=== PATIENT | male | born 1960 | race Caucasian/White ===

== ENCOUNTER 2019-09-08 17:00 | Outpatient (CLI) | payer OTHER, SELFPAY ==
--- NOTE | ~2019-09-08 | MR_ITS ---
EXAMINATION: MR lumbar spine wo con DATE: 09/08/2019 17:45 INDICATION: Low back pain. TECHNIQUE: Magnetic resonance imaging (MRI) of the lumbar spine was performed without intravenous con trast. Sequences included sagittal T2-weighted FSE, sagittal T2-weighted FS FSE, sagittal T1-weighted FSE, and axial T2-weighted FSE. COMPARISON: Lumbar spine radiograph 08/24/2018 FINDINGS: There is 3 degrees dextrocurvature of lumbar spine. There is a Schmorl's node of T12 inferi or endplate. There is mild chronic anterior wedging of T11 and T12. There is mildly decreased disc he ight from T11-T12 through L3-L4. The distal spinal cord signal intensity is normal. The conus medulla ris is at L1-L2. The following disc levels are specifically discussed: L1-L2: The disc is bulging and has an annular fissure. There is mild bilateral facet joint osteoarthr itis. There is mild right neural foraminal stenosis. There is mild central canal stenosis. L2-L3: The disc is bulging and has an annular fissure. There is mild bilateral facet joint osteoarthr itis. There is mild bilateral neural foraminal stenosis. There is mild central canal stenosis. L3-L4: The disc is bulging and has an annular fissure. There is mild left facet joint osteoarthritis. There is mild right and moderate left neural foraminal stenosis. There is mild central canal stenosi s. L4-L5: The disc is bulging. There is severe left facet joint osteoarthritis. There is mild bilateral neural foraminal stenosis. There is no central canal stenosis. L5-S1: There is a right central extrusion. There is mild bilateral facet joint osteoarthritis. There is mild right neural foraminal stenosis. There is mild central canal stenosis. IMPRESSION: 1. Mild lumbar spondylosis. Reviewed, dictated and finalized at [facility]. IMPRESSION: 1. Mild lumbar spondylosis.
== END 2019-09-08 17:01 | disposition home or self-care (01) ==
PROVIDERS: PCP Internal Medicine; Visit Provider Internal Medicine
DX: M54.5 Low back pain (principal); G89.29 Other chronic pain; M47.816 Spondylosis without myelopathy or radiculopathy, lumbar region
CPT/HCPCS: 72148

== ENCOUNTER 2021-01-10 02:30 | Day surgery (SDC) | payer OTHER, SELFPAY ==
[2020-12-26 14:12] VITALS: BMI 30.5
--- NOTE | 2021-01-09 13:23 | PM.HPGS ---
History of Present Illness History of Present Illness Consent: Risks, benefits, and alternatives have been discussed and questions answered. Patient agrees to proceed with procedure. Chief complaint: neoplasm screening Narrative: Rell Mcfarlane is a 60 year old male referred for colon cancer screening. His last colonoscopy was 11 years ago Review of Systems Review of Systems: All systems reviewed & are unremarkable except as noted in HPI and below PMFSH Past Medical History Medical History Chondromalacia of both patellae Chronic bilateral low back pain without sciatica Diverticulitis Gouty arthritis Heart disease HOCM (hypertrophic obstructive cardiomyopathy) Hypothyroidism (acquired) Idiopathic gout, multiple sites Idiopathic gout, unspecified site Internal derangement of left knee Kidney disease Lumbar spondylosis Mixed hyperlipidemia Sleep apnea Testicular hypogonadism Thyroid disease Vitamin D deficiency, unspecified Surgical History Surgical History H/O cardiac radiofrequency ablation History of cholecystectomy (~1996) History of colon resection (~2008) History of common bile duct surgery Hx of cataract surgery both eyes 2016 Family History Family History Sibling Family history of cardiomyopathy Family history of malignant neoplasm of breast in first degree relative Father Family history of diabetes mellitus in first degree relative Hypertension Sibling , Also had HOCM at 63 HOCM (hypertrophic obstructive cardiomyopathy) Mother Alcoholism Social History Social History Smoking status: Never smoker Second hand tobacco smoke exposure: No Alcohol intake: current Drinks per week: 24 Alcohol use details: beer Substance use: never Substance use type: does not use Living arrangements: with family Gender identity (if verbalized by the patient): Male Spiritual care concerns: No Agree to blood products: Yes Meds Home Medications and Allergies Home Medications Medication Instructions Recorded Confirmed Type ergocalciferol (vitamin D2) 1,250 See Rx Instructions .ROUTE 02/14/20 01/10/21 Rx mcg (50,000 unit) capsule .COMPLEX #13 cap icosapent ethyl 1 gram capsule 2 g PO BID 10/10/20 01/10/21 History cyanocobalamin (vitamin B-12) 1,000 mcg SUBLINGUAL DAILY #50 ea 10/31/20 01/10/21 Rx 1,000 mcg sublingual lozenge verapamil 240 mg tablet,extended 240 mg PO Q12H 11/14/20 01/10/21 History release rosuvastatin 10 mg tablet 10 mg PO DAILY #90 tablet 11/27/20 01/10/21 Rx probenecid 500 mg tablet 500 mg PO BID 90 Days #180 tablet 12/11/20 01/10/21 Rx levothyroxine 50 mcg PO DAILY 12/26/20 01/10/21 History Allergies Allergy/AdvReac Type Severity Reaction Status Date / Time iodine Allergy Intermediate hypertensio Verified 01/10/21 08:41 n Contrast Media Allergy Intermediate hypertensio Uncoded 01/10/21 08:41 n Exam Resp: Auscultation: clear to auscultation bilaterally Cardio: Rate: regular rate Rhythm: regular rhythm GI: GI Palp: Yes Soft to palpation and No Tenderness to palpation present (GI) Assessment and Plan Assessment and plan (1) Colon cancer screening: Code(s): Z12.11 - Encounter for screening for malignant neoplasm of colon Status: Acute Assessment and Plan: Colonoscopy with possible biopsy or polypectomy or cautery or injection of substances.
[2021-01-10 08:43] VITALS: BP 168/98; PULSE 88; RESP 17; TEMP 35.9; O2SAT 96; BMI 29.6
[2021-01-10] MEDS: LACTATED RINGERS 1,000 ML 150 ML IV CONT (08:45)
--- NOTE | 2021-01-10 08:52 | WPDANESEPPF ---
Anes - Initial Pre Proc Eval Procedure: Operation Date: 01/10/21 10:00 Proposed Procedures p Screening Colonoscopy - Royce Marie MD Date/Time: 01/10/21 08:52 Surgeon: Royce Marie MD Pre Op Diagnosis: neoplasm screening Patient Data Age: 60 Gender: M Height: 1.78 m Weight: 93.7 kg Last Vital Signs Temp 35.9 C L 01/10/21 08:43 Pulse 88 01/10/21 08:43 Resp 17 01/10/21 08:43 BP 168/98 H 01/10/21 08:43 Pulse Ox 96 01/10/21 08:43 Allergies Allergy/AdvReac Type Severity Reaction Status Date / Time iodine Allergy Intermediate hypertensio Verified 01/10/21 08:41 n Contrast Media Allergy Intermediate hypertensio Uncoded 01/10/21 08:41 n Home Medications Medication Instructions Recorded Confirmed Type ergocalciferol (vitamin D2) 1,250 See Rx Instructions .ROUTE 02/14/20 01/10/21 Rx mcg (50,000 unit) capsule .COMPLEX #13 cap icosapent ethyl 1 gram capsule 2 g PO BID 10/10/20 01/10/21 History cyanocobalamin (vitamin B-12) 1,000 mcg SUBLINGUAL DAILY #50 ea 10/31/20 01/10/21 Rx 1,000 mcg sublingual lozenge verapamil 240 mg tablet,extended 240 mg PO Q12H 11/14/20 01/10/21 History release rosuvastatin 10 mg tablet 10 mg PO DAILY #90 tablet 11/27/20 01/10/21 Rx probenecid 500 mg tablet 500 mg PO BID 90 Days #180 tablet 12/11/20 01/10/21 Rx levothyroxine 50 mcg PO DAILY 12/26/20 01/10/21 History Patient hx anesthesia problems: none Family hx anesthesia problems: none Results Review: All pre-operative results and documents have been reviewed as part of the pre-operative evaluation. [facility] Past Medical History Medical History Chondromalacia of both patellae Chronic bilateral low back pain without sciatica Diverticulitis Gouty arthritis Heart disease HOCM (hypertrophic obstructive cardiomyopathy) Hypothyroidism (acquired) Idiopathic gout, multiple sites Idiopathic gout, unspecified site Internal derangement of left knee Kidney disease Lumbar spondylosis Mixed hyperlipidemia Sleep apnea Testicular hypogonadism Thyroid disease Vitamin D deficiency, unspecified Surgical History Surgical History H/O cardiac radiofrequency ablation History of cholecystectomy (~1996) History of colon resection (~2008) History of common bile duct surgery Hx of cataract surgery both eyes 2016 Family History Family History Sibling Family history of cardiomyopathy Family history of malignant neoplasm of breast in first degree relative Father Family history of diabetes mellitus in first degree relative Hypertension Sibling , Also had HOCM at 63 HOCM (hypertrophic obstructive cardiomyopathy) Mother Alcoholism Social History Social History Smoking status: Never smoker Second hand tobacco smoke exposure: No Alcohol intake: current Drinks per week: 24 Alcohol use details: beer Substance use: never Substance use type: does not use Living arrangements: with family Gender identity (if verbalized by the patient): Male Spiritual care concerns: No Agree to blood products: Yes Anes - Eval Final PreProcedure Day of Procedure 01/10/21 08:52 Patient weight: obese Heart: regular rate and rhythm Lungs: clear to auscultation and normal air movement Airway: Mallampati scale class II Neurological: alert and oriented Last oral intake: >/= 8 hours ASA classification: IV Emergent: no Anesthetic plan: proceed Anesthesia type and monitoring: general GIVS Results Review: All pre-operative results and documents have been reviewed as part of the pre-operative evaluation. Informed Consent: The patient's anesthetic plan and its attendant risks and benefits were discussed with the patient/family/POA. Questions were s
[2021-01-10] MEDS: SIMETHICONE ORAL SUSPENSION 20 MG/0.3 ML 30 ML BOTTLE 0.6 ML IRRIGATION (10:00)
[2021-01-10 10:06] VITALS: BP 117/78; PULSE 81; RESP 18; O2SAT 97
[2021-01-10 10:16] VITALS: BP 122/82; PULSE 79; RESP 18; O2SAT 96
[2021-01-10 10:26] VITALS: BP 161/102; PULSE 76; RESP 15; O2SAT 98
== END 2021-01-10 10:38 | disposition home or self-care (01) ==
PROVIDERS: PCP Family Medicine; Visit Provider Internal Medicine Gastroenterology
PROC: 0DJD8ZZ Inspection of Lower Intestinal Tract, Via Natural or Artificial Opening Endoscopic (ICD-10-PCS; CPT 45378; principal; 2021-01-10 10:00)
DX: Z12.11 Encounter for screening for malignant neoplasm of colon (principal); K57.30 Diverticulosis of large intestine without perforation or abscess without bleeding; Z98.0 Intestinal bypass and anastomosis status; Z90.49 Acquired absence of other specified parts of digestive tract; E78.2 Mixed hyperlipidemia; E03.9 Hypothyroidism, unspecified; M10.9 Gout, unspecified; E55.9 Vitamin D deficiency, unspecified; G47.30 Sleep apnea, unspecified; I42.1 Obstructive hypertrophic cardiomyopathy; E66.9 Obesity, unspecified; Z68.29 Body mass index [BMI] 29.0-29.9, adult
CPT/HCPCS: 45378; J2704; J7120

== ENCOUNTER → 2021-05-31 15:21 | Outpatient (CLI) | payer OTHER, SELFPAY ==
--- NOTE | ~2021-05-31 | US_ITS ---
US abdomen complete DATE: 05/31/2021 15:40 INDICATION: Abnormal liver function tests TECHNIQUE: Real-time imaging and Doppler analysis of the abdomen COMPARISON: None FINDINGS: The gallbladder is surgically absent. There is hepatic steatosis. No hepatic space-occupying mass lesion. Normal hepatopedal portal venous flow direction. The common bile duct measures 8.8 mm approximate diameter, possibly secondary to cholecystectomy. Rec ommend correlation with serum bilirubin level The pancreas is not well demonstrated due to interference from overlying bowel gas. Abdominal aorta is of normal caliber. Inferior vena cava is unremarkable. Right kidney measures approximately 11.2 cm length, left kidney 10.2 cm length. No renal mass lesion or hydronephrosis. No splenomegaly. IMPRESSION: Status post cholecystectomy Common bile duct measures up to 8.8 mm; recommend correlation with serum bilirubin level Hepatic steatosis Suboptimal visualization of the pancreas Reviewed, dictated and finalized at [facility]. Reviewed, dictated and finalized at location [facility]. IMPRESSION: Status post cholecystectomy Common bile duct measures up to 8.8 mm; recommend correlation with serum biliru bin level Hepatic steatosis Suboptimal visualization of the pancreas
== END ==
PROVIDERS: Visit Provider Family Medicine
DX: R94.5 Abnormal results of liver function studies (principal); Z90.49 Acquired absence of other specified parts of digestive tract; K76.0 Fatty (change of) liver, not elsewhere classified
CPT/HCPCS: 76700